=== PATIENT | female | born 1995 | race Caucasian/White ===

== ENCOUNTER 2024-02-14 20:46 | Emergency (ER) | payer OTHER ==
[~2024-02-14] VITALS: Ht 160 cm; Wt 81.6 kg
[~2024-02-14 20:46] MED LIST: ACET-10509 PO; NAPR-337 PO
[2024-02-14 21:02] VITALS: BP 131/89; PULSE 92; RESP 18; TEMP 98.4; O2SAT 97
[2024-02-14 21:40] VITALS: BP 131/89; PULSE 92; RESP 18; TEMP 98.4; O2SAT 97
[2024-02-14 21:46] LABS: FLU A ANTIGEN negative (NEGATIVE); FLU B ANTIGEN NEGATIVE (NEGATIVE)
[2024-02-14] MEDS ORDERED: IBUP-2213 PO (21:52)
[2024-02-14] MEDS ORDERED: CETI10SG1 PO (21:52)
[2024-02-14] MEDS: KETOROLAC 30 MG/ML VIAL IM ONE (22:31)
== END 2024-02-14 22:12 | disposition home or self-care (01) ==
LOC: MED 20:46
DX: B34.9 Viral infection, unspecified (principal); Z20.822 Contact with and (suspected) exposure to COVID-19; Z79.899 Other long term (current) drug therapy
CPT/HCPCS: 81025; 87426; 87804; 96372; 99283; J1885